=== PATIENT | male | born 1965 | race Caucasian/White ===

== ENCOUNTER 2016-12-27 11:03 | Observation (INO) | payer OTHER, MEDICARE ==
[~2016-12-27] VITALS: Ht 172.7 cm; Wt 81.7 kg
[~2016-12-27 11:03] MED LIST: ALPR0.5T7; AMIT75TA2 PO; AMOX-355 PO; ARIP10TA10; ATOR80TA76; BACL20TA; BUPR150T14; CYPR4TAB; DULO60CA6 PO; FNT25TD TD; GABA800T PO; HYDR-3714 PO; METF500T8 PO; NFPRILOC40 PO; ONDAN4ODT PO; OXYC-272 PO; OXYC30TA80 PO; PERCOCET; PNT40TEC PO; QUET200T2 PO
[2016-12-27] MEDS ORDERED: ONDANSETRON 4 MG/2 ML (SDV) Z0FRAN ONE (11:21)
[2016-12-27] MEDS ORDERED: LORazepam INJ 2 MG/ML (ATIVAN) VIAL ONE (11:22)
--- NOTE | 2016-12-27 11:28 | ED General ---
General Chief Complaint: Altered Mental Status Stated Complaint: AMD Source of Information: Patient Exam Limitations: No Limitations History of Present Illness Time Seen by Provider: 11:25 Initial Comments Patient presents with altered mental status. Patient is been up all night's very restless and agitated. He ran out of pain medication last night. His refilled at this morning and he has had one pain pill. Symptoms were so severe that his called the ambulance. Patient is nauseated and has vomited. He is unable to sit still. He is awake and alert but extremely agitated Allergies and Home Medications Allergies Coded Allergies: No Known Drug Allergies (Unverified , 11/18/11) Home Medications Baclofen 20 Mg Tablet 20 MG PO TID (Reported) Metformin HCl 500 Mg Tab.er.24h #90 (Reported) Oxycodone Hcl 30 Mg Tablet 30 MG PO 5X DAILY (Reported) Paroxetine HCl 25 Mg Tab.er.24h 25 MG PO HS (Reported) Sitagliptin Phosphate 100 Mg Tablet 100 MG PO DAILY (Reported) Constitutional: see HPI Respiratory: no symptoms reported Cardiovascular: no symptoms reported Psychiatric/Neurological: Anxiety All Other Systems Reviewed Negative Unless Noted: Yes Past Niawqgk-Mgqvzi-Guilsz Hx Patient Social History Former Smoker/When Quit: Immunizations Up To Date Date of Influenza Vaccine: Sep 19, 2014 Surgeries HX Surgeries: Yes (FINGER SX X4, BILAT SHOULDER BILAT ELBOW, CLAVICLE SX) Respiratory Hx Respiratory Disorders: No Cardiovascular Hx Cardiac Disorders: No Neurological Hx Neurological Disorders: No Genitourinary Hx Genitourinary Disorders: No Gastrointestinal Hx Gastrointestinal Disorders: No Musculoskeletal Hx Musculoskeletal Disorders: Yes Musculoskeletal Disorders: Arthritis Endocrine Hx Endocrine Disorders: Yes (PRE DIABETES) HEENT HX ENT Disorders: No Cancer Hx Cancer: No Psychosocial Hx Psychiatric Problems: No Blood Transfusions Hx Blood Disorders: No Physical Exam Vital Signs Vital Sign - Last 12Hours 12/27/16 11:03 Temp 97.4 Pulse 88 Resp 18 B/P 132/96 Pulse Ox 97 O2 Delivery Room Air Capillary Refill : General Appearance: WD/WN Anxious Other (restless and agitated) HEENT: PERRL/EOMI Neck: Supple Respiratory: Lungs Clear Normal Breath Sounds Cardiovascular: Regular Rate, Rhythm No Edema Gastrointestinal: Soft Extremity: Normal Inspection Normal Range of Motion Neurologic/Psychiatric: Alert No Motor/Sensory Deficits Skin: Normal Color Warm/Dry Progress/Results/Core Measures Results/Orders Lab Results Laboratory Tests Test 12/27/16 11:35 12/27/16 11:50 Range/Units Acetaminophen Level < 10 L 10-30 UG/ML Alanine Aminotransferase (ALT/SGPT) 15 0-55 U/L Albumin 4.5 3.2-4.5 G/DL Alkaline Phosphatase 58 40-136 U/L Anion Gap 13 5-14 MMOL/L Aspartate Amino Transf (AST/SGOT) 22 5-34 U/L BUN/Creatinine Ratio 10 Basophils # (Auto) 0.0 0.0-0.1 10^3/uL Basophils (%) (Auto) 0 0-10 % Blood Urea Nitrogen 10 7-18 MG/DL Calcium Level 9.4 8.5-10.1 MG/DL Carbon Dioxide Level 18 L 21-32 MMOL/L Chloride Level 110 H 98-107 MMOL/L Creatinine 1.01 0.60-1.30 MG/DL Eosinophils # (Auto) 0.0 0.0-0.3 10^3/uL Eosinophils (%) (Auto) 0 0-10 % Estimat Glomerular Filtration Rate > 60 Glucose Level 209 H 70-105 MG/DL Hematocrit 44 40-54 % Hemoglobin 15.8 13.3-17.7 G/DL Lymphocytes # (Auto) 1.5 1.0-4.0 X 10^3 Lymphocytes (%) (Auto) 14 12-44 % Mean Corpuscular Hemoglobin 30 25-34 PG Mean Corpuscular Hemoglobin Concent 36 32-36 G/DL Mean Corpuscular Volume 85 80-99 FL Mean Platelet Volume 11.2 H 7.4-10.4 FL Monocytes # (Auto) 0.6 0.0-1.0 X 10^3 Monocytes (%) (Auto) 6 0-12 % Neutrophils # (Auto) 9.0 H 1.8-7.8 X 10^3 Neutrophils (%) (Auto) 80 H 42-75 % Platelet Count 234 130-400 10^3/uL Potassium Level 5.0 3.6-5.0 MMOL/L Red Blood Count 5.20 4.35-5.85 10^6/uL Red Cell Distribution Width 12.1 10.0-14.5 % Salicylates Level < 5.0 L 5.0-20.0 MG/DL Serum Alcohol < 10 <10 MG/DL Sodium Level 141 135-145 MMOL/L Total Bilirubin 0.4 0.1-1.0 MG/DL Total Protein 7.5 6.4-8.2 G/DL White Blood Count 11.2 H 4.3-11.0 10^3/uL Ur Tricyclic Antidepressants Screen NEGATIVE NEGATIVE Urine Amphetamines Screen NEGATIVE NEGATIVE Urine Bacteria NEGATIVE /HPF Urine Barbiturates Screen NEGATIVE NEGATIVE Urine Benzodiazepines Screen NEGATIVE NEGATIVE Urine Bilirubin NEGATIVE NEGATIVE Urine Cannabinoids Screen NEGATIVE NEGATIVE Urine Casts NONE /LPF Urine Clarity CLEAR Urine Cocaine Screen NEGATIVE NEGATIVE Urine Color YELLOW Urine Crystals NONE /LPF Urine Culture Indicated NO Urine Glucose (UA) NEGATIVE NEGATIVE Urine Ketones NEGATIVE NEGATIVE Urine Leukocyte Esterase NEGATIVE NEGATIVE Urine Methadone Screen NEGATIVE NEGATIVE Urine Methamphetamines Screen NEGATIVE NEGATIVE Urine Mucus NEGATIVE /LPF Urine Nitrite NEGATIVE NEGATIVE Urine Opiates Screen POSITIVE H NEGATIVE Urine Oxycodone Screen POSITIVE H NEGATIVE Urine Phencyclidine Screen NEGATIVE NEGATIVE Urine Propoxyphene Screen NEGATIVE NEGATIVE Urine Protein 1+ H NEGATIVE Urine RBC NONE /HPF Urine RBC (Auto) NEGATIVE NEGATIVE Urine Specific [place] 1.010 L 1.016-1.022 Urine Urobilinogen NORMAL NORMAL MG/DL Urine WBC RARE /HPF Urine pH 7 5-9 Labs were reviewed My Orders Orders-SHELLEY STEIN MD Acetaminophen (12/27/16 11:09) Alcohol (12/27/16 11:09) Cbc With Automated Diff (12/27/16 11:09) Comprehensive Metabolic Panel (12/27/16 11:09) Drug Screen Stat (Urine) (12/27/16 11:09) Salicylate (12/27/16 11:09) Ua Culture If Indicated (12/27/16 11:09) Lorazepam Injection (Ativan Injection) (12/27/16 11:30) Ondansetron Injection (Zofran Injectio (12/27/16 11:30) Ct Head Wo (12/27/16 11:22) Ondansetron Injection (Zofran Injectio (12/27/16 11:21) Lorazepam Injection (Ativan Injection) (12/27/16 11:22) Morphine Injection (Morphine Injection (12/27/16 11:45) Morphine Injection (Morphine Injection (12/27/16 11:37) Medications Given in ED Current Medications Medications Dose Ordered Sig/Yonathan Route Start Time Stop Time Status Last Admin Dose Admin Lorazepam 1 mg ONCE ONCE IVP 12/27/16 11:30 12/27/16 11:31 DC 12/27/16 11:36 1 MG Morphine Sulfate 10 mg ONCE ONCE IVP 12/27/16 11:45 12/27/16 11:46 DC 12/27/16 11:40 10 MG Ondansetron HCl 4 mg ONCE ONCE IVP 12/27/16 11:30 12/27/16 11:31 DC 12/27/16 11:36 8 MG Vital Signs/I&O Vital Sign - Last 12Hours 12/27/16 11:03 Temp 97.4 Pulse 88 Resp 18 B/P 132/96 Pulse Ox 97 O2 Delivery Room Air Progress Note : Time: 12:26 Progress Note Patient resting comfortably after IV morphine. I suspect opiate withdrawal as the cause of the symptoms. Will admit for observation and resume his regularly scheduled oxycodone Diagnostic Imaging Comments CT scan shows nothing acute Departure Communication Time/Spoke to Admitting Phy: 12:27 Communication I spoke with Dr. White who will admit for observation Impression Impression: Primary Impression: Altered mental status Qualified Code: R41.82 - Altered mental status, unspecified Additional Impression: Opiate withdrawal Disposition: HOME, SELF-CARE Condition: Stable Decision to Admit Reason: Admit from ER (General) Decision to Admit/Date: Dec 27, 2016 Time/Decision to Admit Time: 12:28 Departure-Patient Inst. Referrals: LORNE WHITE DO (PCP/Family) Primary Care Physician SHELLEY STEIN MD Dec 27, 2016 11:28
[2016-12-27] MEDS ORDERED: ONDANSETRON 4 MG/2 ML (SDV) Z0FRAN IVP ONE (11:30)
[2016-12-27] MEDS ORDERED: LORazepam INJ 2 MG/ML (ATIVAN) VIAL IVP ONE (11:30)
[2016-12-27] MEDS ORDERED: morphine INJ 10 MG/ML 1ML (SYR OR VIAL) ONE (11:37)
[2016-12-27 11:45] LABS: BASOPHILS % (AUTO) 0 % (0-10); EOSINOPHILS % (AUTO) 0 % (0-10); LYMPHOCYTES # (AUTO) 1.5 X 10^3 (1.0-4.0); LYMPHOCYTES % (AUTO) 14 % (12-44); MEAN CORPUSCULAR HEMOGLOBIN 30 PG (25-34); MEAN CORPUSCULAR HGB CONC 36 G/DL (32-36); MEAN CORPUSCULAR VOLUME 85 FL (80-99); MEAN PLATELET VOLUME 11.2 FL (7.4-10.4); MONOCYTES # (AUTO) 0.6 X 10^3 (0.0-1.0); MONOCYTES % (AUTO) 6 % (0-12); NEUTROPHILS % (AUTO) 80 % (42-75); PLATELET COUNT 234 10^3/uL (130-400); RED CELL DISTRIBUTION WIDTH 12.1 % (10.0-14.5); WHITE BLOOD COUNT 11.2 10^3/uL (4.3-11.0)
[2016-12-27] MEDS ORDERED: morphine INJ 10 MG/ML 1ML (SYR OR VIAL) IVP ONE (11:45)
[2016-12-27 11:58] LABS: BILIRUBIN,URINE NEGATIVE (NEGATIVE); KETONES,URINE NEGATIVE (NEGATIVE); LEUKOCYTE ESTERASE ,URINE NEGATIVE (NEGATIVE); NITRITE,URINE NEGATIVE (NEGATIVE); PH,URINE 7 (5-9); PROTEIN,URINE 1+ (NEGATIVE); UROBILINOGEN,URINE NORMAL (NORMAL)
[2016-12-27 12:06] LABS: ACETAMINOPHEN < 10 UG/ML (10-30); ALANINE AMINOTRANSFERASE 15 U/L (0-55); ALBUMIN 4.5 G/DL (3.2-4.5); ALCOHOL < 10 MG/DL (<10); ANION GAP 13 MMOL/L (5-14); ASPARTATE AMINO TRANSFERASE 22 U/L (5-34); BILIRUBIN,TOTAL 0.4 MG/DL (0.1-1.0); BLOOD UREA NITROGEN 10 MG/DL (7-18); BUN/CREATININE RATIO 10; CALCIUM 9.4 MG/DL (8.5-10.1); CARBON DIOXIDE 18 MMOL/L (21-32); CHLORIDE 110 MMOL/L (98-107); CREATININE SERUM 1.01 MG/DL (0.60-1.30); GFR ESTIMATED > 60; GLUCOSE 209 MG/DL (70-105); SALICYLATE < 5.0 MG/DL (5.0-20.0); SODIUM 141 MMOL/L (135-145); TOTAL PROTEIN 7.5 G/DL (6.4-8.2)
[2016-12-27 12:07] LABS: WBC,URINE RARE /HPF
--- NOTE | 2016-12-27 12:13 | Diagnostic Imaging Report ---
PROCEDURE: CT head without contrast. TECHNIQUE: Multiple contiguous axial images were obtained through the brain without the use of intravenous contrast. INDICATION: Altered mental status. FINDINGS: There is no intracranial hemorrhage, edema, or mass effect. The brain parenchyma and newman-white matter differentiation is preserved. There is no hydrocephalus. No extra-axial fluid collection or hemorrhage. The calvarium, the paranasal sinuses, and the orbits visualized portions appear grossly unremarkable. IMPRESSION: Unremarkable exam. Dictated by: Dictated on workstation # [id number]
[2016-12-27] MEDS ORDERED: BACL20TA PO (12:14)
[2016-12-27] MEDS ORDERED: SITA100T12 PO (12:14)
[2016-12-27] MEDS ORDERED: PARO25TA14 PO (12:14)
[2016-12-27] MEDS ORDERED: PARO25TA16 PO (12:46)
[2016-12-27] MEDS ORDERED: OXYC30TA80 PO (12:46)
[2016-12-27 13:00] VITALS: BP 104/67
[2016-12-27] MEDS ORDERED: CATHETER FLUSH 10 ML SYR IV PRN (14:00)
[2016-12-27] MEDS ORDERED: OMEP20TA7 PO (14:07)
[2016-12-27] MEDS: NS IV 1000 ML 1,000 ML IV SCH (14:54)
[2016-12-27] MEDS: PARoxetine 10 MG (PAXIL) TAB PO SCH (14:54)
[2016-12-27 15:30] VITALS: BP 112/77
[2016-12-27] MEDS: metFORMIN 500 MG (GLUCOPHAGE) TAB PO SCH (17:00)
[2016-12-27] MEDS: inSUlin (REGULAR) HUMAN 1 UNIT/0.01 ML (CHARGE PER UNIT) SC SCH ×2 (17:18→21:00)
[2016-12-27] MEDS: oxyCODONE ER 15 MG (oxyCONTIN CR) TAB PO SCH ×2 (17:23→21:32)
--- NOTE | 2016-12-27 18:44 | History & Physicial ---
History of Present Illness History of Present Illness Reason for visit/HPI This is a 51 year old male who is on chronic narcotics for chronic pain. He ran out of his pain medications last night and then had shaking with restlessness and agitation all night. His refilled his pain medications this AM and gave him a dose but he continued to have agitation and then developed nausea and vomiting. She had to call EMS because she was unable to calm him down to get him into a car to bring him to the emergency room. He was agitated and combative in the emergency room requiring IV ativan and IV morphine before he calmed down. His lab and CT of head were normal. It was felt that he was having acute narcotic withdrawal and should be admitted for overnight observation. Date of Admission Dec 27, 2016 at 12:20 I consulted on this patient on 12/27/16 18:39 Attending Physician Bridget Eason DO Admitting Physician Bridget Eason DO Consult Allergies and Home Medications Allergies Coded Allergies: No Known Drug Allergies (Unverified , 12/27/16) Home Medications Baclofen 20 Mg Tablet 20 MG PO TID PRN PRN MUSCLE SPASMS (Reported) Metformin HCl 500 Mg Tab.er.24h 500 MG PO BID (Reported) Omeprazole 20 Mg Tablet.dr 20 MG PO DAILY PRN PRN INDIGESTION (Reported) Oxycodone HCl 30 Mg Tablet 30 MG PO 5XD PRN PRN PAIN (Reported) Paroxetine HCl 25 Mg Tab.er.24h 25 MG PO HS (Reported) Sitagliptin Phosphate 100 Mg Tablet 100 MG PO DAILY (Reported) Past Mxeblzx-Ljmkln-Awrbho Hx Patient Social History Alcohol Use: Denies Use Recreational Drug Use: No Smoking Status: Current Someday Smoker Former smoker/When Quit: Type Used: Cigarettes Physical Abuse Screen: No Sexual Abuse: No Recent Foreign Travel: No Contact w/other who traveled: No Recent Hopitalizations: No Recent Infectious Disease Expo: No Immunizations Up To Date Date of Influenza Vaccine: Aug 26, 2016 Seasonal Allergies Seasonal Allergies: No Surgeries HX Surgeries: Yes (FINGER SX X4, BILAT SHOULDER BILAT ELBOW, CLAVICLE SX) Respiratory Hx Respiratory Disorders: No Cardiovascular Hx Cardiovascular Disorders: No Neurological Hx Neurological Disorders: No Genitourinary Hx Genitourinary Disorders: No Gastrointestinal Hx Gastrointestinal Disorders: No Gastrointestinal Disorders: Gastroesophageal Reflux Musculoskeletal Hx Musculoskeletal Disorders: Yes Musculoskeletal Disorders: Arthritis Endocrine Hx Endocrine Disorders: Yes Endocrine Disorders: Diabetes, Non-Insulin dep HEENT HX ENT Disorders: No Cancer Hx Cancer: No Psychosocial Hx Psychiatric Problems: Yes Behavioral Health Disorders: PTSD Blood Transfusions Hx Blood Disorders: No Family Medical History Family Hx: FH: cancer FHx: diabetes mellitus FHx: stroke Constitutional: weakness EENTM: No blurred vision, No dental problems, No double vision, No ear discharge, No ear pain, No epistaxis, No eye pain, No hearing loss, No hoarseness, No mouth pain, No mouth swelling, No no symptoms reported, No nose congestion, No nose pain, No other, No see HPI, No tearing, No throat pain, No throat swelling, No vision loss Respiratory: No no symptoms reported, No see HPI, No cough, No dyspnea on exertion, No hemoptysis, No orthopnea, No phlegm, No short of breath, No stridor , No wheezing, No other Cardiovascular: No no symptoms reported, No see HPI, No chest pain, No edema, No Hx of Intervention, No palpitations, No syncope, No vascular heart diseas, No other Gastrointestinal: nausea vomiting Genitourinary: No no symptoms reported, No see HPI, No decreased output, No discharge, No dysuria, No frequency, No hematuria, No hesitancy, No incontinence , No nocturia, No pain, No other Musculoskeletal: back pain (chronic) muscle twitching muscle weakness Skin: No no symptoms reported, No see HPI, No change in color, No change in hair/nails, No dryness, No hx of skin cancer, No lesions, No lumps, No pruritus , No rash, No other Psychiatric/Neurological: Emotional Problems (agitated/combative/confused) Tremors (jerking of arms) Weakness Physical Exam Vital Signs Vital Sign - Last 12Hours 12/27/16 12/27/16 11:03 13:00 Temp 97.4 Pulse 88 Resp 18 B/P 132/96 Pulse Ox 97 O2 Delivery Room Air O2 Flow Rate 2 Capillary Refill : Less Than 3 SecondsLess Than 3 Seconds General Appearance: Anxious (mild agitation) HEENT: Pharynx Normal Neck: Supple Respiratory: Lungs Clear Cardiovascular: Regular Rate, Rhythm Gastrointestinal: Normal Bowel Sounds Non Tender Soft Rectal: Deferred Back: No CVA Tenderness Extremity: Non Tender No Calf Tenderness No Pedal Edema Neurologic/Psychiatric: Alert Oriented x3 Other (still with some jerking of his right arm) Skin: Normal Color Warm/Dry Comments Laboratory Tests 12/27/16 11:35: Acetaminophen Level < 10L, Alanine Aminotransferase (ALT/SGPT) 15, Albumin 4.5, Alkaline Phosphatase 58, Anion Gap 13, Aspartate Amino Transf (AST/SGOT) 22, BUN /Creatinine Ratio 10, Basophils # (Auto) 0.0, Basophils (%) (Auto) 0, Blood Urea Nitrogen 10, Calcium Level 9.4, Carbon Dioxide Level 18L, Chloride Level 110H, Creatinine 1.01, Eosinophils # (Auto) 0.0, Eosinophils (%) (Auto) 0, Estimat Glomerular Filtration Rate > 60, Glucose Level 209H, Hematocrit 44, Hemoglobin 15.8, Lymphocytes # (Auto) 1.5, Lymphocytes (%) (Auto) 14, Mean Corpuscular Hemoglobin 30, Mean Corpuscular Hemoglobin Concent 36, Mean Corpuscular Volume 85, Mean Platelet Volume 11.2H, Monocytes # (Auto) 0.6, Monocytes (%) (Auto) 6, Neutrophils # (Auto) 9.0H, Neutrophils (%) (Auto) 80H, Platelet Count 234, Potassium Level 5.0, Red Blood Count 5.20, Red Cell Distribution Width 12.1, Salicylates Level < 5.0L, Serum Alcohol < 10, Sodium Level 141, Total Bilirubin 0.4, Total Protein 7.5, White Blood Count 11.2H 12/27/16 11:50: Ur Tricyclic Antidepressants Screen NEGATIVE, Urine Amphetamines Screen NEGATIVE , Urine Bacteria NEGATIVE, Urine Barbiturates Screen NEGATIVE, Urine Benzodiazepines Screen NEGATIVE, Urine Bilirubin NEGATIVE, Urine Cannabinoids Screen NEGATIVE, Urine Casts NONE, Urine Clarity CLEAR, Urine Cocaine Screen NEGATIVE, Urine Color YELLOW, Urine Crystals NONE, Urine Culture Indicated NO, Urine Glucose (UA) NEGATIVE, Urine Ketones NEGATIVE, Urine Leukocyte Esterase NEGATIVE, Urine Methadone Screen NEGATIVE, Urine Methamphetamines Screen NEGATIVE, Urine Mucus NEGATIVE, Urine Nitrite NEGATIVE, Urine Opiates Screen POSITIVEH, Urine Oxycodone Screen POSITIVEH, Urine Phencyclidine Screen NEGATIVE , Urine Propoxyphene Screen NEGATIVE, Urine Protein 1+H, Urine RBC NONE, Urine RBC (Auto) NEGATIVE, Urine Specific [place] 1.010L, Urine Urobilinogen NORMAL, Urine WBC RARE, Urine pH 7 12/27/16 16:18: Glucometer 113H Assessment/Plan Assessment and Plan 1. Acute Narcotic Withdrawal--admit and hydrate, restart oxycodone and baclofen , ativan prn, monitor for withdrawal seizures 2. Diabetes mellitus, II--accuchecks with SSI 3. Anxiety--resume paxil Clinical Quality Measures DVT/VTE Risk/Contraindication: Risk Factor Score Per Nursin RFS Level Per Nursing on Admit: 1=Low/No VTE PPX BRIDGET EASON DO Dec 27, 2016 18:44
[2016-12-27] MEDS ORDERED: TEMAZEPAM 15 MG (RESTORIL) CAP PO PRN (18:45)
[2016-12-27] MEDS ORDERED: LORazepam INJ 2 MG/ML (ATIVAN) VIAL IVP PRN (18:45)
[2016-12-27 19:45] VITALS: BP 113/75
[2016-12-27] MEDS: BACLOFEN 10 MG (LIORESAL) TAB PO SCH (21:31)
[2016-12-28] VITALS: BP 127/72
[2016-12-28] MEDS: NS IV 1000 ML 1,000 ML IV SCH ×2 (00:04→10:00)
[2016-12-28 04:00] VITALS: BP 115/73
[2016-12-28] MEDS: inSUlin (REGULAR) HUMAN 1 UNIT/0.01 ML (CHARGE PER UNIT) SC SCH ×2 (06:00→11:00)
[2016-12-28] MEDS: oxyCODONE ER 15 MG (oxyCONTIN CR) TAB PO SCH ×2 (06:19→09:29)
[2016-12-28] MEDS: metFORMIN 500 MG (GLUCOPHAGE) TAB PO SCH (06:19)
[2016-12-28 08:00] VITALS: BP 160/77
[2016-12-28] MEDS: BACLOFEN 10 MG (LIORESAL) TAB PO SCH (09:28)
[2016-12-28] MEDS: PARoxetine 10 MG (PAXIL) TAB PO SCH (09:29)
--- NOTE | 2016-12-28 09:46 | Discharge Inst-Simple/Standard ---
Discharge Inst-Standard Discharge Medications New, Converted or Re-Newed RX: Other Patient Instructions/Follow Up Plan of Care/Instructions/FU: 1 week Activity as Tolerated: Yes Discharge Diet: ADA Diet, Cardiac Diet LORNE WHITE DO Dec 28, 2016 9:46 am
[2016-12-28] MEDS ORDERED: sitaGLIPtin 50 MG (JANUVIA) TAB PO SCH (13:55)
== END 2016-12-28 09:45 | disposition home or self-care (01) ==
LOC: EDUNIT# 11:03 → ER 11:04 → 4TH 12:20 → UNDOADMOB 12:20 → 4TH 13:00 → UNDODISOB 12-28 10:25
PROVIDERS: ADMIT Family Medicine; ATTEND Family Medicine
DX: F11.23 Opioid dependence with withdrawal (principal); R41.82 Altered mental status, unspecified; F41.9 Anxiety disorder, unspecified; F43.10 Post-traumatic stress disorder, unspecified; E11.9 Type 2 diabetes mellitus without complications; K21.9 Gastro-esophageal reflux disease without esophagitis; F17.210 Nicotine dependence, cigarettes, uncomplicated
CPT/HCPCS: 36415; 51702; 70450; 80053; 80306; 80320; 80329; 81000; 82962; 85025; 96374; 96375; 99211; G0378

== ENCOUNTER → 2017-03-19 | Outpatient (CLI) | payer OTHER, MEDICARE ==
[~2017-03-19] MED LIST changes: +BACL20TA PO; +OMEP20TA7 PO; +PARO25TA14 PO; +PARO25TA16 PO; +SITA100T12 PO
--- NOTE | 2017-03-19 14:46 | Diagnostic Imaging Report ---
Duplex venous ultrasound of the right upper extremity. INDICATION: Right arm pain. FINDINGS: The right internal jugular vein, subclavian, axillary, brachial, radial, ulnar, basilic and cephalic veins are all patent. The area of pain was specifically scanned near the lateral aspect of the biceps region with no underlying abnormality seen. IMPRESSION: Unremarkable exam. Dictated by: Dictated on workstation # [id number]
== END ==
LOC: RAD 13:56
PROVIDERS: ATTEND Family Medicine
DX: M79.631 Pain in right forearm (principal); R22.31 Localized swelling, mass and lump, right upper limb

== ENCOUNTER → 2017-03-27 | Outpatient (CLI) | payer OTHER, MEDICARE ==
--- NOTE | 2017-03-27 15:19 | Diagnostic Imaging Report ---
INDICATION: Neck pain with right arm radiculopathy. COMPARISON STUDY: None. FINDINGS: AP, lateral and odontoid views of the cervical spine demonstrate no fracture, subluxation or prevertebral soft tissue swelling. Facet arthropathy is present at C4-C5 on the left, C5-C6 and C6-C7. Disc space narrowing is present at C5-C6 and to a lesser degree at C6-C7. IMPRESSION: There is spondylosis as above. Dictated by: Dictated on workstation # [id number]
== END ==
LOC: RAD 14:42
PROVIDERS: ATTEND Family Medicine
DX: M47.812 Spondylosis without myelopathy or radiculopathy, cervical region (principal)
CPT/HCPCS: 72040

== ENCOUNTER → 2019-09-01 | Outpatient (CLI) | payer OTHER, MEDICARE ==
[~2019-09-01] MED LIST changes: -CYPR4TAB; +CYPR4TAB41
--- NOTE | 2019-09-01 14:28 | Diagnostic Imaging Report ---
PROCEDURE: MR imaging of the brain without contrast. TECHNIQUE: Multiplanar, multisequence MR imaging of the brain was performed without contrast. INDICATION: Memory loss and shaking. Comparison is made with prior MRI of the brain from 12/27/2016. Ventricles and sulci are within normal limits. Occasional subcortical white matter foci are noted, perhaps on the basis of chronic microvascular ischemia. There is no diffusion restriction. The normal expected flow-voids within the carotid siphons are seen. There is no mass effect or midline shift. No acute intra-axial or extra-axial hemorrhage is seen. Corpus callosum is unremarkable. The sella and parasellar structures are unremarkable. IMPRESSION: Changes of chronic microvascular ischemia. The study is otherwise unremarkable. No acute intracranial process is detected. Dictated by: Dictated on workstation # [id number]
== END ==
LOC: RAD 13:06
PROVIDERS: ATTEND Family Medicine
DX: I67.82 Cerebral ischemia (principal); M51.36 Other intervertebral disc degeneration, lumbar region; R25.1 Tremor, unspecified; Z98.1 Arthrodesis status
CPT/HCPCS: 70551

== ENCOUNTER → 2020-08-30 | Outpatient (CLI) | payer OTHER, MEDICARE ==
[~2020-08-30] MED LIST changes: +METF-865 PO; -METF500T8 PO; +OXYC-527 PO
== END ==
LOC: CARD 13:30
PROVIDERS: ATTEND Family Medicine
DX: I51.7 Cardiomegaly (principal)
CPT/HCPCS: 93306